=== PATIENT | female | born 1980 | race Caucasian/White ===

== ENCOUNTER 2021-05-10 09:14 | Inpatient (IN) ==
[2021-05-10] MEDS ORDERED: Piperacillin/Tazobactam 3.375 GM in 0.9 % Sodium Chloride Mini Bag 100 ML IVPB ONE (11:01)
[2021-05-10] MEDS ORDERED: *HR* HYDROmorphone (PF) 1 MG/ML SYRINGE IVP ONE (11:09)
[2021-05-10 11:38] LABS: Basophils # 0.1 K/mcL (0.0-0.2); Basophils % 0.7 %; Eosinophils # 0.1 K/mcL (0.0-0.6); Eosinophils % 0.8 %; Hematocrit 36.3 % (35.3-44.9); Hemoglobin 12.5 g/dL (11.5-15.4); Immature Granulocytes % 0.3 % (0-4); Lymphocytes # 1.2 K/mcL (0.6-4.6); Mean Corpuscular HGB Conc 34.4 g/dL (31.6-35.5); Mean Corpuscular Hemoglobin 30.4 pg (28.0-33.3); Mean Corpuscular Volume 88.3 fL (83.0-100.0); Mean Platelet Volume 9.7 fL (9.4-12.4); Monocytes # 0.6 K/mcL (0.0-1.3); Monocytes % 8.3 %; Neutrophils # 5.4 K/mcL (1.6-8.9); Platelet Count 249 K/mcL (140-400); Red Blood Count 4.11 M/mcL (3.82-4.97); Red Cell Distribution Width 12.1 % (11.5-14.5); Segmented Neutrophils % 73.9 %; White Blood Count 7.3 K/mcL (4.3-11.1)
[2021-05-10 11:57] LABS: BUN/Creatinine Ratio 13 (6-26); Blood Urea Nitrogen 13 mg/dL (6-20); Calcium 8.9 mg/dL (8.6-10.3); Carbon Dioxide 30 mEq/L (23-29); Chloride 104 mEq/L (98-107); Glucose 102 mg/dL (70-105); Osmolality,Calculated 286 (280-300); Potassium 3.5 mEq/L (3.5-5.1); Sodium 138 mEq/L (136-145); eGFR For African Americans > 60 (> 60); eGFR For Non-African Americans > 60 (> 60)
[2021-05-10] MEDS ORDERED: Vancomycin 1,250 MG/262.5 ML IV.SOLN IVPB ONE (12:00)
[2021-05-10] MEDS ORDERED: Naloxone 0.4 MG/ML INJ IVP PRN (13:38)
[2021-05-10] MEDS ORDERED: MOM Conc 10 ML UD.LIQ PO PRN (13:38)
[2021-05-10] MEDS ORDERED: Mag Hydrox/Al Hydrox/Simeth 30 ML UDC PO PRN (13:38)
[2021-05-10] MEDS ORDERED: Melatonin 3 MG TABLET PO PRN (13:38)
[2021-05-10] MEDS ORDERED: *HR* HYDROmorphone (PF) 1 MG/ML SYRINGE IVP PRN (13:40)
[2021-05-10] MEDS: *HR* OxyCODONE Immed Rel 5 MG TABLET PO PRN ×2 (17:42→21:55)
[2021-05-10] MEDS: Venlafaxine XR (24 HR) 75 MG CAP.ER.24H PO SCH (19:52)
[2021-05-10] MEDS: Piperacillin/Tazobactam 3.375 GM in 0.9 % Sodium Chloride Mini Bag 100 ML IVPB SCH (19:52)
[2021-05-10] MEDS: Ondansetron ODT 4 MG TAB.RAPDIS SL PRN (21:57)
[2021-05-10] MEDS: Vancomycin 1,250 MG/262.5 ML IV.SOLN IVPB SCH (22:49)
[2021-05-11] MEDS: *HR* OxyCODONE Immed Rel 5 MG TABLET PO PRN ×2 (02:35→06:42)
[2021-05-11] MEDS: Piperacillin/Tazobactam 3.375 GM in 0.9 % Sodium Chloride Mini Bag 100 ML IVPB SCH ×3 (03:50→19:34)
[2021-05-11 04:42] LABS: Hematocrit 35.7 % (35.3-44.9); Hemoglobin 12.3 g/dL (11.5-15.4); Mean Corpuscular HGB Conc 34.5 g/dL (31.6-35.5); Mean Corpuscular Hemoglobin 29.9 pg (28.0-33.3); Mean Corpuscular Volume 86.9 fL (83.0-100.0); Mean Platelet Volume 9.5 fL (9.4-12.4); Platelet Count 256 K/mcL (140-400); Red Blood Count 4.11 M/mcL (3.82-4.97); Red Cell Distribution Width 12.2 % (11.5-14.5); White Blood Count 8.8 K/mcL (4.3-11.1)
[2021-05-11 05:00] LABS: Alanine Aminotransferase 18 Units/L (7-52); Albumin 3.7 g/dL (3.5-5.7); Albumin/Globulin Ratio 1.4 (1.1-2.2); Alkaline Phosphatase 104 Units/L (34-104); Aspartate Amino Transferase 22 Units/L (13-39); BUN/Creatinine Ratio 9 (6-26); Bilirubin,Total 0.6 mg/dL (0.3-1.0); Blood Urea Nitrogen 10 mg/dL (6-20); Calcium 8.6 mg/dL (8.6-10.3); Carbon Dioxide 32 mEq/L (23-29); Chloride 97 mEq/L (98-107); Globulin 2.7 g/dL (2.4-3.5); Glucose 97 mg/dL (70-105); Osmolality,Calculated 287 (280-300); Potassium 3.4 mEq/L (3.5-5.1); Sodium 139 mEq/L (136-145); Total Protein 6.4 g/dL (6.4-8.9); eGFR For African Americans > 60 (> 60); eGFR For Non-African Americans 57 (> 60)
[2021-05-11] MEDS ORDERED: *HR* Enoxaparin 40 MG/0.4 ML SYRINGE SQ SCH (06:00)
[2021-05-11] MEDS: Ondansetron ODT 4 MG TAB.RAPDIS SL PRN (06:43)
[2021-05-11] MEDS ORDERED: Ketorolac 30 MG/ML VIAL IVP PRN (10:19)
[2021-05-11] MEDS: Vancomycin 1,250 MG/262.5 ML IV.SOLN IVPB SCH (11:07)
[2021-05-11] MEDS ORDERED: Ketorolac 30 MG/ML VIAL IVP SCH (12:00)
[2021-05-11] MEDS ORDERED: Acetaminophen 325 MG TABLET PO PRN ×2 (15:21→21:34)
[2021-05-11] MEDS ORDERED: *HR* FentaNYL (PF) 100 MCG/2 ML VIAL ONE (19:43)
[2021-05-11] MEDS ORDERED: *HR* Midazolam HCl 2 MG/2 ML VIAL ONE (19:43)
[2021-05-11] MEDS ORDERED: Lidocaine -MPF 2% 2 ML VIAL ONE (19:43)
[2021-05-11] MEDS ORDERED: Lidocaine/EPI 1:100k 1% 50 ML VIAL ONE (20:03)
[2021-05-11] MEDS: Venlafaxine XR (24 HR) 75 MG CAP.ER.24H PO SCH (20:05)
[2021-05-11] MEDS ORDERED: Ondansetron 4 MG/2 ML VIAL ONE (20:28)
[2021-05-11] MEDS ORDERED: Acetaminophen IV 1,000 MG/100 ML BAG IVPB ONE ×2 (21:10)
[2021-05-11] MEDS ORDERED: MOM Conc 10 ML UD.LIQ PO PRN (21:34)
[2021-05-11] MEDS ORDERED: *HR* HYDROmorphone (PF) 1 MG/ML SYRINGE IVP PRN (21:34)
[2021-05-11] MEDS ORDERED: *HR* OxyCODONE Immed Rel 5 MG TABLET PO PRN (21:34)
[2021-05-11] MEDS ORDERED: Ondansetron ODT 4 MG TAB.RAPDIS SL PRN (21:34)
[2021-05-11] MEDS ORDERED: Mag Hydrox/Al Hydrox/Simeth 30 ML UDC PO PRN (21:34)
[2021-05-11] MEDS ORDERED: Naloxone 0.4 MG/ML INJ IVP PRN (21:34)
[2021-05-11] MEDS ORDERED: Melatonin 3 MG TABLET PO PRN (21:34)
[2021-05-11] MEDS: Ketorolac 30 MG/ML VIAL IVP PRN (21:41)
[2021-05-12] MEDS ORDERED: Vancomycin 1,250 MG/262.5 ML IV.SOLN IVPB SCH
[2021-05-12] MEDS: Piperacillin/Tazobactam 3.375 GM in 0.9 % Sodium Chloride Mini Bag 100 ML IVPB SCH ×2 (03:22→11:44)
[2021-05-12 05:59] LABS: Hematocrit 37.2 % (35.3-44.9); Hemoglobin 12.8 g/dL (11.5-15.4); Mean Corpuscular HGB Conc 34.4 g/dL (31.6-35.5); Mean Corpuscular Hemoglobin 30.2 pg (28.0-33.3); Mean Corpuscular Volume 87.7 fL (83.0-100.0); Mean Platelet Volume 9.8 fL (9.4-12.4); Platelet Count 282 K/mcL (140-400); Red Blood Count 4.24 M/mcL (3.82-4.97); Red Cell Distribution Width 11.9 % (11.5-14.5); White Blood Count 7.1 K/mcL (4.3-11.1)
[2021-05-12] MEDS ORDERED: *HR* Enoxaparin 40 MG/0.4 ML SYRINGE SQ SCH (06:00)
[2021-05-12 06:21] LABS: Albumin 3.7 g/dL (3.5-5.7); Albumin/Globulin Ratio 1.3 (1.1-2.2); Bilirubin,Total 0.6 mg/dL (0.3-1.0); Calcium 8.4 mg/dL (8.6-10.3); Globulin 2.8 g/dL (2.4-3.5); Potassium 3.8 mEq/L (3.5-5.1); Total Protein 6.5 g/dL (6.4-8.9)
[2021-05-12] MEDS: Ketorolac 30 MG/ML VIAL IVP PRN (07:53)
[2021-05-12] MEDS ORDERED: 0.9 % Sodium Chloride 1,000 ML IVC SCH (08:15)
[2021-05-12 10:47] LABS: Calcium 8.6 mg/dL (8.6-10.3); Potassium 3.4 mEq/L (3.5-5.1)
[2021-05-12 17:49] LABS: Calcium 8.1 mg/dL (8.6-10.3)
[2021-05-12] MEDS: Venlafaxine XR (24 HR) 75 MG CAP.ER.24H PO SCH (20:11)
[2021-05-12] MEDS: Doxycycline 100 MG CAPSULE PO SCH (20:11)
[2021-05-12 21:06] LABS: Bacteria,Urine Few per hpf (None-Few); Bilirubin,Urine Negative (Negative); Blood,Urine Negative (Negative); Clarity,Urine Clear (Clear); Color,Urine Colorless (Yellow); Glucose,Urine (UA) Normal (Normal); Ketones,Urine Negative (Negative); Leukocyte Esterase,Urine Small (Negative); Mucus,Urine Few per lpf (None-Few); Nitrite,Urine Negative (Negative); PH,Urine 5.5 pH Units (5.0-8.0); Protein,Urine Negative (Neg-Trace); RBC,Urine 0-3 per hpf (0-3); Specific Gravity,Urine 1.009 (1.010-1.025); Squamous Epithelial Cell,Urine Moderate per hpf (None-Few); Urobilinogen,Urine Normal (Normal); WBC,Urine 0-3 per hpf (0-3)
[2021-05-12 21:13] LABS: Protein/Creatinine Ratio,Urine 0.14 mg/mg (0.00-0.20)
[2021-05-13 04:46] LABS: Basophils % 0.2 %; Eosinophils % 0.4 %; Hematocrit 31.2 % (35.3-44.9); Immature Granulocytes % 0.3 % (0-4); Lymphocytes # 1.4 K/mcL (0.6-4.6); Lymphocytes % 14.8 %; Mean Corpuscular HGB Conc 35.3 g/dL (31.6-35.5); Mean Corpuscular Hemoglobin 30.6 pg (28.0-33.3); Mean Corpuscular Volume 86.9 fL (83.0-100.0); Monocytes # 0.5 K/mcL (0.0-1.3); Monocytes % 5.4 %; Neutrophils # 7.3 K/mcL (1.6-8.9); Platelet Count 267 K/mcL (140-400); Red Blood Count 3.59 M/mcL (3.82-4.97); Red Cell Distribution Width 11.9 % (11.5-14.5); Segmented Neutrophils % 78.9 %; White Blood Count 9.2 K/mcL (4.3-11.1)
[2021-05-13 05:00] LABS: Complement C3 122 mg/dL (87-200)
[2021-05-13 05:00] LABS: Magnesium 1.9 mg/dL (1.6-2.6); Phosphorous 4.2 mg/dL (2.7-4.5)
[2021-05-13 05:01] LABS: Albumin 3.3 g/dL (3.5-5.7); Albumin/Globulin Ratio 1.4 (1.1-2.2); Bilirubin,Total 0.2 mg/dL (0.3-1.0); Globulin 2.4 g/dL (2.4-3.5); Potassium 2.9 mEq/L (3.5-5.1); Total Protein 5.7 g/dL (6.4-8.9)
[2021-05-13 05:13] LABS: Hematocrit 31.2 % (35.3-44.9); Mean Corpuscular HGB Conc 35.3 g/dL (31.6-35.5); Mean Corpuscular Hemoglobin 30.7 pg (28.0-33.3); Mean Corpuscular Volume 87.2 fL (83.0-100.0); Mean Platelet Volume 10.1 fL (9.4-12.4); Platelet Count 266 K/mcL (140-400); Red Blood Count 3.58 M/mcL (3.82-4.97); Red Cell Distribution Width 11.9 % (11.5-14.5); White Blood Count 9.4 K/mcL (4.3-11.1)
[2021-05-13] MEDS: *HR* Enoxaparin 30 MG/0.3 ML SYRINGE SQ SCH (05:16)
[2021-05-13] MEDS: Doxycycline 100 MG CAPSULE PO SCH ×2 (08:10→21:27)
[2021-05-13] MEDS ORDERED: 0.9 % Sodium Chloride 1,000 ML IVC SCH (16:45)
[2021-05-13] MEDS: Venlafaxine XR (24 HR) 75 MG CAP.ER.24H PO SCH (21:28)
[2021-05-14 01:55] LABS: Hemoglobin 11.1 g/dL (11.5-15.4); Mean Corpuscular HGB Conc 34.7 g/dL (31.6-35.5); Mean Corpuscular Volume 89.4 fL (83.0-100.0); Platelet Count 252 K/mcL (140-400); Red Blood Count 3.58 M/mcL (3.82-4.97); Red Cell Distribution Width 12.2 % (11.5-14.5); White Blood Count 6.4 K/mcL (4.3-11.1)
[2021-05-14 02:17] LABS: Albumin 3.3 g/dL (3.5-5.7); Albumin/Globulin Ratio 1.4 (1.1-2.2); Bilirubin,Total 0.2 mg/dL (0.3-1.0); Calcium 8.1 mg/dL (8.6-10.3); Globulin 2.4 g/dL (2.4-3.5); Potassium 3.1 mEq/L (3.5-5.1); Total Protein 5.7 g/dL (6.4-8.9)
[2021-05-14] MEDS: *HR* Enoxaparin 30 MG/0.3 ML SYRINGE SQ SCH (07:16)
[2021-05-14] MEDS: Doxycycline 100 MG CAPSULE PO SCH (08:24)
[2021-05-14 19:02] VITALS: BP 122/78
[2021-05-15 10:26] LABS: ANA IgG by ELISA NONE DETECTED (None Detected)
[2021-05-17 06:00] LABS: Alpha 2 Globulin (PEP) 0.83 g/dL (0.48-1.05); Beta Globulin (PEP) 0.58 g/dL (0.48-1.10)
[2021-05-17 09:43] LABS: Serine Protease-3 Antibody 2 AU/mL (0-19)
[2021-05-17 09:54] LABS: IFE Reflexed IFE Done
== END 2021-05-14 19:30 | disposition left against medical advice (07) | DRG 316 ==
LOC: 3BNU 09:14 → EMEROOARM 09:14 → SUATTDRO 13:14 → 3BNU 14:28 → SUATTDRO 05-11 14:33
PROVIDERS: ADMIT Internal Medicine; ATTEND Nurse Practitioner